=== PATIENT | male | born 1970 ===

== ENCOUNTER 2019-07-19 19:56 | Emergency (ER) | payer OTHER ==
[~2019-07-19] VITALS: Ht 193 cm; Wt 145.1 kg
[2019-07-19] MEDS ORDERED: LOSARTAN POTASS50 MG (19:58)
== END 2019-07-19 22:52 | disposition home or self-care (01) ==
LOC: ER 19:56
DX: S60.212A Contusion of left wrist, initial encounter (principal); S60.211A Contusion of right wrist, initial encounter; M54.2 Cervicalgia; R51 Headache; W18.09XA Striking against other object with subsequent fall, initial encounter; Y93.89 Activity, other specified; Y92.69 Other specified industrial and construction area as the place of occurrence of the external cause; Y99.8 Other external cause status